=== PATIENT | female | born 1945 ===

== ENCOUNTER 2019-04-12 11:21 | Outpatient (CLI) | payer OTHER ==
[~2019-04-12] VITALS: Ht 162.6 cm; Wt 71.7 kg
== END 2019-04-12 11:40 | disposition home or self-care (01) ==
LOC: OFIC 805 11:21
DX: J32.8 Other chronic sinusitis (principal); R49.0 Dysphonia; K21.0 Gastro-esophageal reflux disease with esophagitis; R13.19 Other dysphagia

== ENCOUNTER 2019-06-11 10:48 | Outpatient (CLI) | payer OTHER ==
[~2019-06-11] VITALS: Ht 152.4 cm; Wt 71.7 kg
== END 2019-06-11 11:00 | disposition home or self-care (01) ==
LOC: OFIC 805 10:48
DX: K21.0 Gastro-esophageal reflux disease with esophagitis (principal); R49.0 Dysphonia; R13.19 Other dysphagia

== ENCOUNTER 2019-08-16 09:53 | Outpatient (CLI) | payer OTHER | END 2019-08-16 10:07 | disposition home or self-care (01) | LOC: RAD 09:53 | DX: M12.812 Other specific arthropathies, not elsewhere classified, left shoulder (principal); J44.9 Chronic obstructive pulmonary disease, unspecified ==

== ENCOUNTER 2019-10-02 08:11 | Inpatient (IN) | payer OTHER ==
[~2019-10-02] VITALS: Ht 162.6 cm; Wt 72.6 kg
[2019-10-09] MEDS ORDERED: COZAAR50 MG PO (08:16)
[2019-10-09] MEDS ORDERED: PROAIR HFA8.5 GM IH (08:17)
[2019-10-09] MEDS ORDERED: IMODIUM A-D2 M2 PO (08:17)
[2019-10-09] MEDS ORDERED: INTEGRA CAPSUL1 EACH PO (08:17)
[2019-10-09] MEDS ORDERED: CARAFATE1 GM PO (08:18)
[2019-10-09] MEDS ORDERED: CHILDREN'S FLO5.9 ML NS (08:19)
[2019-10-19] MEDS ORDERED: CIPRO500 MG PO (07:42)
[2019-10-19] MEDS ORDERED: ELIQUIS2.5 MG PO (07:42)
[2019-10-19] MEDS ORDERED: PERCOCET 5-3251 EACH PO (07:42)
== END 2019-10-19 17:25 | DRG 470 ==
LOC: O/R 10-16 05:32 → SURH 10-16 05:32 → SURG 10-16 07:00 → SURH 10-16 10:27
PROVIDERS: ADMIT Orthopaedic Surgery
PROC: 0MNP0ZZ Release Left Knee Bursa and Ligament, Open Approach (ICD-10-PCS; 2019-10-16)
PROC: 0SRD0J9 Replacement of Left Knee Joint with Synthetic Substitute, Cemented, Open Approach (ICD-10-PCS; principal; 2019-10-16 09:00)
DX: M17.12 Unilateral primary osteoarthritis, left knee (principal); M22.12 Recurrent subluxation of patella, left knee; M81.0 Age-related osteoporosis without current pathological fracture; I10 Essential (primary) hypertension; K21.0 Gastro-esophageal reflux disease with esophagitis

== ENCOUNTER 2019-10-02 13:44 | Outpatient (CLI) | payer OTHER | END 2019-10-02 13:50 | disposition home or self-care (01) | LOC: LAB 13:44 | DX: D51.3 Other dietary vitamin B12 deficiency anemia (principal); Z80.3 Family history of malignant neoplasm of breast; D50.8 Other iron deficiency anemias; D53.8 Other specified nutritional anemias; I10 Essential (primary) hypertension; D51.8 Other vitamin B12 deficiency anemias; D55.0 Anemia due to glucose-6-phosphate dehydrogenase [G6PD] deficiency; D51.1 Vitamin B12 deficiency anemia due to selective vitamin B12 malabsorption with proteinuria; D51.0 Vitamin B12 deficiency anemia due to intrinsic factor deficiency ==